=== PATIENT | female | born 1965 | race Caucasian/White ===

== ENCOUNTER 2017-03-18 10:07 | Emergency (ER) | payer OTHER ==
[~2017-03-18] VITALS: Ht 157.5 cm; Wt 80.0 kg
[2017-03-18 10:15] VITALS: Ht 157.5 cm; Wt 80.0 kg
[2017-03-18] MEDS ORDERED: KETOROLAC 15 MG INJ IM STA (11:48)
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
--- NOTE | 2017-03-18 13:06 | RADRPT ---
PROCEDURE: XR Chest. CLINICAL INDICATION: Chest pain TECHNIQUE: Chest PA and lateral. COMPARISON: No comparison available. FINDINGS: The mediastinal structures are unremarkable. The heart is normal in size and configuration. The pu lmonary vascularity is normal. The lung ansari are unremarkable. No consolidation is identified. The pleural spaces are unremarkable. The axial skeleton is unremarkable. IMPRESSION: No active intrathoracic disease. RPTAT: HGDB .Rupesh Bryan MD, MD Date Time Electronically viewed and signed by .Rupesh Bryan MD, MD on 03/18/2017 13:06 .B/
--- NOTE | 2017-03-18 13:07 | RADRPT ---
PROCEDURE: CR right shoulder CLINICAL INDICATION: Shoulder pain TECHNIQUE: 3 views performed COMPARISON: No comparison available. FINDINGS: There is normal mineralization, architecture and alignment.No fracture or osseous lesion is identifi ed.The glenohumeral and acromioclavicular joints are unremarkable. The soft tissues are unremarkable . IMPRESSION: Unremarkable examination. RPTAT: HGDB .Rupesh Bryan MD, MD Date Time Electronically viewed and signed by .Rupesh Bryan MD, MD on 03/18/2017 13:06 .B/
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
[2017-03-18] MEDS ORDERED: IBUP-1542 PO (13:38)
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
== END 2017-03-18 13:51 | disposition home or self-care (01) ==
LOC: FTE 10:07
DX: S30.0XXA Contusion of lower back and pelvis, initial encounter (principal); S20.219A Contusion of unspecified front wall of thorax, initial encounter; S40.011A Contusion of right shoulder, initial encounter; S40.012A Contusion of left shoulder, initial encounter; I10 Essential (primary) hypertension; E03.9 Hypothyroidism, unspecified; V49.40XA Driver injured in collision with unspecified motor vehicles in traffic accident, initial encounter
CPT/HCPCS: 71020; 72170; 73030; 96372; J1885; Z7502

== ENCOUNTER 2018-12-06 09:06 | Emergency (ER) | payer OTHER ==
[~2018-12-06] VITALS: Ht 172.7 cm; Wt 85.0 kg
[~2018-12-06 09:06] MED LIST: IBUP-1542 PO
[2018-12-06 09:08] VITALS: Ht 172.7 cm; Wt 85.0 kg
[2018-12-06] MEDS ORDERED: morphine 4 MG/ML VIAL IV STA (09:47)
[2018-12-06] MEDS ORDERED: SOD CHLORIDE 0.9% 1,000 ML IV STA (11:03)
[2018-12-06] MEDS ORDERED: HYDROmorphONE 2 MG/ML SYG IV STA (11:04)
[2018-12-06] MEDS ORDERED: IODIXANOL LOCM 100 ML BTL ONE (12:47)
[2018-12-06] MEDS ORDERED: SOD CHLORIDE 0.9% 100 ML ONE (12:47)
[2018-12-06] MEDS ORDERED: TRAM50TA2 PO (13:49)
[2018-12-06] MEDS ORDERED: IBUP-1542 PO (13:50)
[2018-12-06 14:02] VITALS: BP 114/79; PULSE 72; RESP 18
--- NOTE | 2018-12-06 16:01 | ERD ---
ER Documentation Chief Complaint Chief Complaint Complains of leg pain after a fall HPI Patient is a 53-year-old female with a past medical history of hypertension, GERD, hypothyroidism, hyperlipidemia, post appendectomy, status post ch olecystectomy, status post hysterectomy, presents the ER for concerns of right- sided leg pain times 1 day. Patient states yesterday she was cleaning her house when she slipped on the wet floors and "did the splits." Patient denied feeling dizzy or lightheaded prior to fall. Patient states that she landed patient states since that time she has had pain to the right buttocks region. The pain radiates down her leg. Patient also reports right hip pain and right-sided back pain. Patient states she did try to take ibuprofen with minimal alleviation of symptoms. This morning patient's pain became significantly worse. Patient denies any saddle anesthesia, urine incontinence or stool incontinence. Patient denies any fevers or chills. Patient denies any chest pain, shortness of breath, abdominal pain. Patient denies any head injury or LOC. Denies blood thinner use. ROS All systems reviewed and are negative except as per history of present illness. Medications Home Meds Active Scripts Ibuprofen* (Motrin*) 600 Mg Tab, 600 MG PO Q6, #30 TAB Prov:NOLAN KENDRICK PA-C 12/06/18 Tramadol HCl (Tramadol HCl) 50 Mg Tablet, 50 MG PO Q6 PRN for PAIN, #10 TAB Prov:NOLAN KENDRICK PA-C 12/06/18 Ibuprofen* (Motrin*) 600 Mg Tab, 600 MG PO Q6H PRN for PAIN AND OR ELEVATED TEMP, #30 TAB Prov:SARAHI MEDINA PA-C 03/18/17 Allergies Allergies: Coded Allergies: No Known Allergy (Unverified , 03/18/17) PMhx/Soc History of Surgery: Yes (appendectomy, hysterectomy, violet, X 2,HERNIA REPAIR) Anesthesia Reaction: No Hx Neurological Disorder: Yes ( hypertension, GERD, hypothyroidism, hyperlipidemia,) Hx Respiratory Disorders: No Hx Cardiac Disorders: Yes (HTN) Hx Psychiatric Problems: No Hx Miscellaneous Medical Probl: Yes (hypothyroidism, cholesterol, reflux.) Hx Alcohol Use: No Hx Substance Use: No Hx Tobacco Use: No FmHx Family History: No diabetes Physical Exam Vitals Vital Signs Date Temp Pulse Resp B/P (MAP) Pulse Ox O2 O2 Flow FiO2 Time Delivery Rate 12/06/18 72 18 114/79 98 Room Air 14:02 (91) 12/06/18 60 20 135/57 100 Room Air 12:00 (83) 12/06/18 97.8 77 20 114/58 99 09:08 (76) Physical Exam GENERAL: Well-developed, well-nourished female. Appears uncomfortable, appears in pain. Difficult to examine as patient is in moderate to severe pain. HEAD: Normocephalic, atraumatic. EYES: Pupils are equally reactive bilaterally. EOMs grossly intact. No conjunctival erythema. ENT: Moist mucous membranes. No uvula deviation. No kissing tonsils. NECK: Supple. No meningismus. Normal range of motion of the neck. LUNG: Clear to auscultation bilaterally. No rhonchi, wheezing, rales or coarse breath sounds. HEART: Regular rate and rhythm. No murmurs, rubs or gallops. ABDOMEN: Soft, nontender, and nondistended. Positive bowel sounds in all four quadrants. No rebound tenderness, no guarding. (-) McBurney's point tenderness. No CVA tenderness. BACK: No midline tenderness. Tender to palpation over the right paraspinal lumbar muscles. Tender to palpation of the right gluteus muscle. Positive straight leg raise on the right. EXTREMITIES: Equal pulses bilaterally. No peripheral clubbing, cyanosis or edema. No unilateral leg swelling. NEUROLOGIC: Alert and oriented. Moving all four extremities without any difficulty. Normal speech. SKIN: Normal color. Warm and dry. No rashes or lesions. Result Diagram: 12/06/18 1118 12/06/18 1118 Results 24 hrs Laboratory Tests Test 12/06/18 11:18 White Blood Count 5.4 10^3/ul Red Blood Count 4.55 10^6/ul Hemoglobin 13.7 g/dl Hematocrit 40.7 % Mean Corpuscular Volume 89.5 fl Mean Corpuscular Hemoglobin 30.1 pg Mean Corpuscular Hemoglobin Concent 33.7 g/dl Red Cell Distribution Width 12.5 % Platelet Count 146 10^3/UL Mean Platelet Volume 10.3 fl Immature Granulocytes % 0.400 % Neutrophils % 55.3 % Lymphocytes % 35.4 % Monocytes % 7.6 % Eosinophils % 0.7 % Basophils % 0.6 % Nucleated Red Blood Cells % 0.0 /100WBC Immature Granulocytes # 0.020 10^3/ul Neutrophils # 3.0 10^3/ul Lymphocytes # 1.9 10^3/ul Monocytes # 0.4 10^3/ul Eosinophils # 0.0 10^3/ul Basophils # 0.0 10^3/ul Nucleated Red Blood Cells # 0.0 10^3/ul Sodium Level 143 mmol/L Potassium Level 3.4 mmol/L Chloride Level 106 mmol/L Carbon Dioxide Level 24 mmol/L Anion Gap 13 Blood Urea Nitrogen 14 mg/dl Creatinine 0.79 mg/dl Est Glomerular Filtrat Rate mL/min > 60 mL/min Glucose Level 96 mg/dl Calcium Level 9.8 mg/dl Troponin I < 0.012 ng/ml Current Medications Medications Dose Sig/Makenna Start Time Status Last (Trade) Ordered Route PRN Stop Time Admin Dose Reason Admin Morphine 4 mg ONCE STAT 12/06/18 DC 12/06/18 Sulfate IV 09:47 12/06/18 09:53 (morphine) 09:48 Sodium 1,000 ml @ Q1H STAT 12/06/18 DC 12/06/18 Chloride 1,000 mls/hr IV 11:03 12/06/18 11:18 12:02 1 mg ONCE STAT 12/06/18 DC 12/06/18 Hydromorphone IV 11:04 12/06/18 11:17 HCl 11:05 (Dilaudid) IV Flush 10 ml STK-MED 12/06/18 DC 12/06/18 (NS 10 ml) ONCE .ROUTE 12:47 12/06/18 12:58 12:48 Sodium 100 ml @ ud STK-MED 12/06/18 DC 12/06/18 Chloride ONCE .ROUTE 12:47 12/06/18 12:58 12:48 Iodixanol 100 ml STK-MED 12/06/18 DC 12/06/18 (Visipaque ONCE .ROUTE 12:47 12/06/18 12:58 Locm) 12:48 Procedures/MDM ED COURSE: The patient was stable throughout ED course. I kept the patient and/or family informed of laboratory and diagnostic imaging results throughout the ED course. EKG: Read by Dr. Marroquin, attending physician. EKG shows normal sinus rhythm at a rate of 60 bpm. No arrhythmias, acute ST elevations or T wave changes were noted. DIAGNOSTIC IMAGING: Read by radiologist. DIAGNOSTIC IMAGING REPORT Patient: RONIT POWELL : 1965 Age: 53 Sex: F MR #: [id number] DOS: 12/06/18 0947 Ordering MD: NOLAN KENDRICK PA-C Location: [facility] Room/Bed: PROCEDURE: XR Lumbar Spine. CLINICAL INDICATION: Back pain. TECHNIQUE: AP and lateral views of the lumbar spine were obtained. COMPARISON: None FINDINGS: The vertebral body heights are maintained. There is no spondylolisthesis. There is no significant disc space narrowing. The posterior elements are grossly unremarkable. There are surgical clips in the right upper quadrant. There are atherosclerotic changes of the aorta. IMPRESSION: No radiographic evidence for acute fracture or traumatic subluxation. RPTAT: HAP Oliver Pantoja Physician Date Time Electronically viewed and signed by Oliver Pantoja, Physician on 12/06/2018 10:49 AP/ CC: NOLAN KENDRICK PA-C [id number] DIAGNOSTIC IMAGING REPORT Patient: RONIT POWELL : 1965 Age: 53 Sex: F MR #: [id number] DOS: 12/06/18 0947 Ordering MD: NOLAN KENDRICK PA-C Location: [facility] Room/Bed: PROCEDURE: XR Right Hip. CLINICAL INDICATION: Right hip pain status post fall. TECHNIQUE: AP and frog lateral views of the right hip were performed. COMPARISON: None FINDINGS: No acute fracture or dislocation is identified. The joint spaces are preserved. The regional soft tissues are within normal limits. IMPRESSION: No acute fracture or dislocation identified of the right hip. RPTAT: HAP Admit-r Kit, Physician Date Time Electronically viewed and signed by Oliver Pantoja Physician on 12/06/2018 10:48 AP/ CC: NOLAN KENDRICK PA-C [id number] Patient: RONIT POWELL : 1965 Age: 53 Sex: F MR #: [id number] DOS: 12/06/18 0947 Ordering MD: NOLAN KENDRICK PA-C Location: [facility] Room/Bed: PROCEDURE: Right femur x-ray CLINICAL INDICATION: Right hip pain status post fall. TECHNIQUE: 4 view(s) of the femur were obtained. COMPARISON: Radiographs . FINDINGS: No acute fracture or dislocation is identified. The joint spaces are preserved. The regional soft tissues are within normal limits. IMPRESSION: No definite evidence for acute fracture or dislocation of the right femur . RPTAT: HAP Oliver Pantoja Physician Date Time Electronically viewed and signed by Oliver Pantoja Physician on 12/06/2018 10:47 AP/ CC: NOLAN KENDRICK PA-C [id number] PROCEDURES: None. MEDICATIONS GIVEN: Morphine 4 mg IV Patient tolerated medication well with no adverse reactions. MEDICAL DECISION MAKING: This is a 53-year-old female presents ER for concerns of right-sided leg pain and back pain after injury yesterday while slipping on wet floors. Vital signs were reviewed. Patient was afebrile. Patient denied any saddle anesthesia, urinary incontinence, bowel incontinence, night pain or recent trauma. Patient was given morphine 4 mg IV. X-ray imaging of the right hip, right femur and the lumbar spine were obtained and were all unremarkable. Upon reexamination, patient continued to report severe pain. Patient at that time reported that her pain was now traveling up into her abdomen. Patient describes the pain to be diffusely throughout her abdomen. Upon repeat examination, patient was tender in all 4 quadrants. I discussed his case with my supervising physician Dr. Marroquin, who agreed that further workup was appropriate. EKG, blood work and CT chest as well as CTA chest angiogram were obtained. Patient was offered additional occasion of Dilaudid 1 mg. After receiving this medication patient's pain was much controlled. CBC showed no evidence of systemic infection or severe anemia. CMP showed no severe electrolyte abnormalities, acidosis, alkalosis or renal failure. Patient's troponin was within normal limits. CT pulmonary angiogram showed 1. No CT evidence for pulmonary embolism. 2. Mild bibasilar atelectasis. 3. Postsurgical changes from gastric bypass and cholecystectomy. No evidence of an aortic dissection was noted. Upon reexamination of the patient, patient was noted to be eating a [employer] sandwich with no signs of distress. Patient was advised on supportive therapies and using heat to the affected extremities. Patient will be discharged home with a prescription for ibuprofen as well as tramadol. Patient advised not to take tramadol when driving or operating any machinery. At this time, the patient's presentation is most consistent with right-sided hip pain and right-sided back pain. Low suspicion for cauda equine syndrome, spinal fractures, hip fracture, femur fracture, hip dislocation, epidural abscess, spinal metastases, osteomyelitis, aortic dissection, ruptured or leaking AA, DJD, sciatica, lumbar strain, muscle spasm, pyelonephritis or nephrolithiasis. Patient was nontoxic, not appearing prior to discharge. The case was reviewed and discussed with Dr. Marroquin who agrees with the plan of care including labs, treatment, and advanced imaging as appropriate. PRESCRIPTIONS: Ibuprofen Tramadol DISCHARGE: At this time, patient is stable for discharge and outpatient management. RICE therapy and ROM exercises were advised to avoid stiffness. I have instructed the patient to follow-up with his/her primary care physician in 1-2 days. I have discussed with the patient the possibility of needing to see an yard specialist for further workup and imaging if the pain persists. I have instructed the patient to promptly return to the ER for any new or worsening symptoms including increased pain, swelling, warmth, urinary incontinence, stool incontinence, weakness or numbness. The patient and/or family expressed understanding of and agreement with this plan. All questions were answered. Home care instructions were provided. Disclaimer: Inadvertent spelling and grammatical errors are likely due to EHR/dictation software use and do not reflect on the overall quality of patient care. Also, please note that the electronic time recorded on this note does not necessarily reflect the actual time of the patient encounter. Departure Diagnosis: Primary Impression: Back pain Additional Impression: Hip pain Condition: Fair Patient Instructions: Hip Strain, Back Pain W/ Sciatica Referrals: [facility] YOU HAVE RECEIVED A MEDICAL SCREENING EXAM AND THE RESULTS INDICATE THAT YOU DO NOT HAVE A CONDITION THAT REQUIRES URGENT TREATMENT IN THE EMERGENCY DEPARTMENT. FURTHER EVALUATION AND TREATMENT OF YOUR CONDITION CAN WAIT UNTIL YOU ARE SEEN IN YOUR DOCTORS OFFICE WITHIN THE NEXT 1-2 DAYS. IT IS YOUR RESPONSIBILITY TO MAKE AN APPOINTMENT FOR FOLOW-UP CARE. IF YOU HAVE A PRIMARY DOCTOR --you should call your primary doctor and schedule an appointment IF YOU DO NOT HAVE A PRIMARY DOCTOR YOU CAN CALL OUR PHYSICIAN REFERRAL HOTLINE AT IF YOU CAN NOT AFFORD TO SEE A PHYSICIAN YOU CAN CHOSE FROM THE FOLLOWING [facility] [address] [employer] [facility]. [facility] [address] [employer] [facility]. [facility] [address] [facility] [facility] [facility] [address] [facility] [address] [facility] [facility]. [address] [facility]. [facility] YOU HAVE RECEIVED A MEDICAL SCREENING EXAM AND THE RESULTS INDICATE THAT YOU DO NOT HAVE A CONDITION THAT REQUIRES URGENT TREATMENT IN THE EMERGENCY DEPARTMENT. FURTHER EVALUATION AND TREATMENT OF YOUR CONDITION CAN WAIT UNTIL YOU ARE SEEN IN YOUR DOCTORS OFFICE WITHIN THE NEXT 1-2 DAYS. IT IS YOUR RESPONSIBILITY TO MAKE AN APPOINTMENT FOR FOLOW-UP CARE. IF YOU HAVE A PRIMARY DOCTOR --you should call your primary doctor and schedule and appointment IF YOU DO NOT HAVE A PRIMARY DOCTOR YOU CAN CALL OUR PHYSICIAN REFERRAL HOTLINE AT . IF YOU CAN NOT AFFORD TO SEE A PHYSICIAN YOU CAN CHOSE FROM THE FOLLOWING [facility] IN[facility]UTIONS: [facility] [address] [place] [address] [facility] [address] [place] [address] [facility] + [facility] [address] [place] [address] Additional Instructions: Call your primary care doctor TOMORROW for an appointment during the next 1-2 days.See the doctor sooner or return here if your condition worsens before your appointment time. NOLAN KENDRICK PA-C Dec 06, 2018 15:59
== END 2018-12-06 14:05 | disposition home or self-care (01) ==
LOC: FTE 09:06
DX: M54.5 Low back pain (principal); M25.551 Pain in right hip; I10 Essential (primary) hypertension; E03.9 Hypothyroidism, unspecified
CPT/HCPCS: 36415; 71275; 72100; 73510; 73550; 80048; 84484; 85025; 93005; 96361; 96374; 96375; J1170; J2270; J7030; Q9967; Z7502; Z7610; 73502; 73552